=== PATIENT | male | born 1990 | race Caucasian/White ===

== ENCOUNTER 2016-08-14 17:47 | Emergency (ER) | payer OTHER ==
[~2016-08-14] VITALS: Ht 182.9 cm; Wt 83.0 kg
[~2016-08-14 17:47] MED LIST: ALBUTEROL SULF8.5 GM IH; BACTROBAN OINTM22 GM TP; INDOCIN50 MG PO; KEFLEX500 MG PO; LIDOCAINE700 MG TD; NAPROSYN500 MG PO; NOHOMEMEDS; NORCO 5/3251 TABLET PO; ORAPRED15 MG/5 ML PO; PHENERGAN25 MG PR; PROMETHAZINE HC25 M1 PO; ROBITUSSIN AC,T10 ML PO; TAMIFLU6 MG/1 ML PO; TESSALON PERLE100 MG PO; ZOFRAN4 MG PO
[2016-08-14 18:11] LABS: HEMATOCRIT 44.6 % (38.0-50.0); MCH 27.6 PG (29.0-34.0); MCHC 32.7 G/DL (30.0-36.0); MCV 84.3 FL (86-99); MEAN PLAT.VOLUME 10.5 uM^3 (9.0-12.4); PLATELET COUNT 256 K/uL (156-360); RBC DIS.WIDTH-CV 12.7 % (11.8-14.6); RBC DIS.WIDTH-SD 38.8 % (39-53); RED BLOOD COUNT 5.29 M/uL (4.00-5.50); WHITE BLOOD COUNT 8.3 K/uL (4.1-10.2)
[2016-08-14 18:20] LABS: CHLORIDE 106 mEq/L (99-109); POTASSIUM 4.1 mEq/L (3.7-5.4); SODIUM 142 mEq/L (136-147)
[2016-08-14 18:23] LABS: GLUCOSE 87 mg/dL (70-99)
[2016-08-14 18:24] LABS: ANION GAP 8 MEQ/L (2-14); TOTAL BILIRUBIN 0.4 mg/dL (0.0-1.0)
[2016-08-14 18:26] LABS: ALKALINE PHOSPHATASE 70 IU/L (3-129); GFR ESTIMATE (CALCULATED) > 59 mL/min/
[2016-08-14 18:27] LABS: UREA NITROGEN (BUN) 8 mg/dL (9-23)
[2016-08-14 19:58] LABS: ADD MIUA? NO; BILIRUBIN NEGATIVE; BLOOD NEGATIVE; COLOR YELLOW ((YELLOW)); GLUCOSE (STRIP) NEGATIVE; KETONES NEGATIVE; LEUKOCYTES NEGATIVE; NITRITE NEGATIVE; PROTEIN (STRIP) NEGATIVE; SPECIFIC GRAVITY 1.015 (1.000-1.030); UCUL ADDED? NO; UROBILINOGEN 0.2 MG/DL (0.2-1.0)
[2016-08-14] MEDS ORDERED: NORCO 5/3251 TABLET PO (21:05)
[2016-08-14 21:52] VITALS: BP 113/88
== END 2016-08-14 21:53 | disposition home or self-care (01) ==
LOC: EME 17:47 → RME 17:47
DX: R19.03 Right lower quadrant abdominal swelling, mass and lump (principal); R11.0 Nausea; R19.7 Diarrhea, unspecified; Z98.890 Other specified postprocedural states
CPT/HCPCS: 74176; 80053; 81003; 85027; 99281; 99284

== ENCOUNTER 2017-06-01 23:32 | Emergency (ER) | payer OTHER ==
[~2017-06-01] VITALS: Ht 182.9 cm; Wt 80.5 kg
[2017-06-02] MEDS ORDERED: MOTRIN800 MG PO (00:35)
[2017-06-02] MEDS ORDERED: NORCO 7.5/321 TABLET PO (00:35)
[2017-06-02 01:04] VITALS: BP 137/98
== END 2017-06-02 01:04 | disposition home or self-care (01) ==
LOC: EME 23:32
DX: S60.032A Contusion of left middle finger without damage to nail, initial encounter (principal); W20.8XXA Other cause of strike by thrown, projected or falling object, initial encounter; J45.909 Unspecified asthma, uncomplicated; Z88.8 Allergy status to other drugs, medicaments and biological substances
CPT/HCPCS: 73140; 99281; 99283